=== PATIENT | female | born 1985 | race Caucasian/White ===

== ENCOUNTER 2019-10-15 21:39 | Outpatient (CLI) | payer OTHER ==
[2019-10-15 22:09] LABS: APPEARANCE,URINE CLOUDY; BILIRUBIN,URINE NEGATIVE (NEGATIVE); COLOR,URINE AMBER; GLUCOSE, URINE NEGATIVE (NEGATIVE); KETONES,URINE 20 mg/dL (NEGATIVE); LEUKOCYTE ESTERASE,URINE MODERATE (NEGATIVE); NITRITE,URINE NEGATIVE (NEGATIVE); PROTEIN,URINE 100 mg/dL (NEGATIVE); URINE SPECIFIC GRAVITY 1.028; UROBILINOGEN,URINE NEGATIVE mg/dL (<2.0)
[2019-10-15 22:31] LABS: URINE AMPHETAMINES SCREEN NEGATIVE; URINE BARBITURATES SCREEN NEGATIVE; URINE BENZODIAZEPINES SCREEN NEGATIVE; URINE COCAINE SCREEN NEGATIVE; URINE MARIJUANA (THC) SCREEN NEGATIVE; URINE METHADONE SCREEN NEGATIVE; URINE PHENCYCLIDINE SCREEN NEGATIVE
[2019-10-16] MEDS ORDERED: HYDROXYZINE PAMOATE 50 MG CAPSULE PO ONE (00:11)
[2019-10-16] MEDS ORDERED: HYDROXYZINE PAMOATE 50 MG CAPSULE ONE (00:14)
--- NOTE | 2019-10-16 00:40 | Non Stress Test Report ---
Non Stress Test Datetime Report Generated by CPN: 10/16/2019 00:40 DEMOGRAPHIC EGA NST: 39.3 INDICATION Indication for Study (NST) Other: labor check MONITORING Monitor Explained: Monitor Explained; Test Explained; Patient Verbalized Understanding Time on Monitor: 10/15/2019 22:03 Time off Monitor: 10/16/2019 00:01 NST Duration: 118 NST INTERVENTIONS NST Interventions: PO Hydration Physician Notified NST: Dr. Cisse BABY A: [id number] BABY A Movement : Present Contraction Frequency : irregular FHR Baseline : 145 Accelerations : 15X15 Decelerations : None Variability : Moderate 6-25bpm NST Review: Meets Criteria for Reactive NST NST Review and Verified By : VALERIANO Reyes NST Results: Reactive NST REPORT Report Trigger: Send Report
== END 2019-10-16 00:34 | disposition home or self-care (01) ==
LOC: LC 21:39
PROVIDERS: ATTEND Student in an Organized Health Care Education/Training Program
DX: Z34.93 Encounter for supervision of normal pregnancy, unspecified, third trimester (principal)
CPT/HCPCS: 59025; 80307; 81005; 84112

== ENCOUNTER 2019-10-17 15:16 | Outpatient (CLI) | payer OTHER ==
[2019-10-17] MEDS ORDERED: ACETAMINOPHEN 325 MG TABLET ONE (15:48)
[2019-10-17] MEDS ORDERED: ACETAMINOPHEN 325 MG TABLET PO PRN (15:50)
[2019-10-17 16:18] LABS: APPEARANCE,URINE SLIGHTLY-CLOUDY; BILIRUBIN,URINE NEGATIVE (NEGATIVE); COLOR,URINE YELLOW; GLUCOSE, URINE NEGATIVE (NEGATIVE); KETONES,URINE 20 mg/dL (NEGATIVE); LEUKOCYTE ESTERASE,URINE NEGATIVE (NEGATIVE); NITRITE,URINE NEGATIVE (NEGATIVE); PROTEIN,URINE 30 mg/dL (NEGATIVE); URINE SPECIFIC GRAVITY 1.019; UROBILINOGEN,URINE NEGATIVE mg/dL (<2.0)
--- NOTE | 2019-10-17 16:35 | Non Stress Test Report ---
Non Stress Test Datetime Report Generated by CPN: 10/17/2019 16:35 DEMOGRAPHIC EGA NST: 39.5 INDICATION Indication for Study (NST) Other: provider orders VITAL SIGNS Temperature - NST: 97.5 Pulse - NST: 76 RESP - NST: 18 NBPSYS NST: 121 NBPDIA NST: 56 MONITORING Monitor Explained: Monitor Explained; Test Explained; Patient Verbalized Understanding Time on Monitor: 10/17/2019 15:35 Time off Monitor: 10/17/2019 16:26 NST Duration: 51 NST INTERVENTIONS NST Interventions: PO Hydration; Reposition Patient Physician Notified NST: C. Amador, CNM BABY A: [id number] BABY A Movement : Present Contraction Frequency : irregular FHR Baseline : 135 Accelerations : 15X15 Decelerations : None Variability : Moderate 6-25bpm NST Review: Meets Criteria for Reactive NST NST Review and Verified By : Kye Crump RN NST Results: Reactive NST REPORT Report Trigger: Send Report
[2019-10-17 16:41] LABS: URINE AMPHETAMINES SCREEN NEGATIVE; URINE BARBITURATES SCREEN NEGATIVE; URINE BENZODIAZEPINES SCREEN NEGATIVE; URINE COCAINE SCREEN NEGATIVE; URINE MARIJUANA (THC) SCREEN NEGATIVE; URINE METHADONE SCREEN NEGATIVE; URINE PHENCYCLIDINE SCREEN NEGATIVE
== END 2019-10-17 16:48 | disposition home or self-care (01) ==
LOC: LC 15:16
PROVIDERS: ATTEND Obstetrics & Gynecology
DX: O47.1 False labor at or after 37 completed weeks of gestation (principal); Z3A.39 39 weeks gestation of pregnancy
CPT/HCPCS: 59025; 80307; 81005

== ENCOUNTER 2019-10-17 20:59 | Inpatient (IN) | payer OTHER ==
[2019-10-17] MEDS ORDERED: RINGERS SOLUTION,LACTATED 1,000 ML IV PRN (21:40)
[2019-10-17] MEDS ORDERED: RINGERS SOLUTION,LACTATED 1,000 ML IV ONE (21:40)
[2019-10-17] MEDS ORDERED: MISOPROSTOL 0.2 MG TABLET ONE (21:49)
[2019-10-17] MEDS ORDERED: OXYTOCIN 10 UNIT/ML VIAL ONE (21:49)
[2019-10-17 21:50] LABS: BILIRUBIN,URINE NEGATIVE (NEGATIVE); GLUCOSE, URINE 50 mg/dL (NEGATIVE); KETONES,URINE 80 mg/dL (NEGATIVE); LEUKOCYTE ESTERASE,URINE NEGATIVE (NEGATIVE); NITRITE,URINE NEGATIVE (NEGATIVE); PROTEIN,URINE 100 mg/dL (NEGATIVE); URINE SPECIFIC GRAVITY 1.031; UROBILINOGEN,URINE NEGATIVE mg/dL (<2.0)
[2019-10-17] MEDS ORDERED: BUPIVACAINE HCL 0.25 % INJ/PF (2.5 MG/1 ML) 30 ML VIAL ONE (21:50)
[2019-10-17] MEDS ORDERED: FENTANYL/BUPIVACAINE/NS/PF 300 MCG/150 ML RTUINJ EPI ONE (21:50)
[2019-10-17] MEDS ORDERED: LIDOCAINE 1% INJ-PF (10 MG/ML) 30 ML SDV ONE (21:50)
[2019-10-17] MEDS ORDERED: OXYTOCIN/0.9 % SODIUM CHLORIDE 30 UNIT/500 ML RTUINJ ONE (21:50)
[2019-10-17 21:52] LABS: APPEARANCE,URINE TURBID; COLOR,URINE RED
[2019-10-17 22:02] LABS: ABSOLUTE MONOCYTES (AUTO) 0.3 10^3/uL (0.1-1.4); BASOPHILS % (AUTO) 0.1 % (0-2); HEMATOCRIT 38.4 % (36.0-47.0); HEMOGLOBIN 13.2 g/dL (12.0-15.5); LYMPHOCYTES % (AUTO) 6.9 % (13-45); MEAN CORPUSCULAR HEMOGLOBIN 30.4 pg (27.0-33.4); MEAN CORPUSCULAR HGB CONC 34.4 g/dL (32.0-36.0); MEAN CORPUSCULAR VOLUME 88 fl (80-97); PLATELET COUNT 185 10^3/uL (150-450); RED BLOOD COUNT 4.35 10^6/uL (3.72-5.28); RED CELL DISTRIBUTION WIDTH 13.5 % (11.5-14.0); TOTAL CELLS COUNTED % (AUTO) 100 %; WHITE BLOOD COUNT 14.2 10^3/uL (4.0-10.5)
[2019-10-17 22:08] LABS: URINE AMPHETAMINES SCREEN NEGATIVE; URINE BARBITURATES SCREEN NEGATIVE; URINE BENZODIAZEPINES SCREEN NEGATIVE; URINE COCAINE SCREEN NEGATIVE; URINE MARIJUANA (THC) SCREEN NEGATIVE; URINE METHADONE SCREEN NEGATIVE; URINE PHENCYCLIDINE SCREEN NEGATIVE
--- NOTE | 2019-10-17 22:16 | Admission Physical ---
Datetime Report Generated by CPN: 10/17/2019 22:16 CURRENT ADMISSION Chief Complaint: Uterine Contractions Chief Complaint Other: 34 yo at 39.5 with painful contractions every 2-4 minutes. She has hx of one prior CS aftter Non-reassuring heart tracing in labor . She had progressed in that to 3 cm and had an epidural. She reports good FM and no LOF or VB. She has noted some mucus that is pink over last two days. Admit Impression : Term, Intrauterine ; Active Labor; Intact Membranes; Admit Plan: Admit to Unit; Initiate Protocol ALLERGIES Medication Allergies: No Medication Allergies: No Known Drug Allergies (10/17/2019) Latex: No Latex Allergies Food Allergies: none Environmental Allergies: none OBSTETRICAL HISTORY EDC: 10/19/2019 00:00 : 2 Para: 1 Term: 1 : 0 SAB: 0 IAB: 0 Livin Gestational Diabetes: No Rh Sensitization: No Incompetent Cervix: No DMOINIC: No Infertility: No ART Treatment: No Uterine Anomaly: No IUGR: No Hx Previous C/S: Yes Macrosomia: No Hx Loss/Stillborn: No PIH: No Hx : No Placenta Previa/Abruption: No Depression/PP Depression: Yes PTL/PROM: No Post Hemorrhage: No Current Procedures: Ultrasound; NST Obstetrical History Comments: , c/s for nonreassuring tracing, 40+ weeks g2-current , plans SEE RECORDS Alcohol: No Marijuana : No Cocaine: No Other Illicit Drugs: No Cigarettes: Never Smoker. [id number] MEDICAL HISTORY Diabetes: No Blood Transfusion: No Pulmonary Disease (Asthma, TB): No Breast Disease: No Hypertension: No Machine Assembler For Puller Over Surgery: No Heart Disease: No Hosp/Surgery: Yes Autoimmune Disorder: No Anesthetic Complications: No Kidney Disease: No Abnormal Pap Smear: No Neuro/Epilepsy: No Psychiatric Disorders: No Other Medical Diseases: No Hepatitis/Liver Disease: No Significant Family History: No Varicosities/Phlebitis: No Trauma/Violence : No Thyroid Dysfunction: No Medical History Comments: csection in 2015, hypoglycemia, depression off meds currently INFECTIOUS HISTORY Gonorrhea: No Genital Herpes: No Chlamydia: No Tuberculosis: No Syphilis: No Hepatitis: No HIV/AIDS Exposure: No Rash or Viral Illness: No HPV: No PHYSICAL EXAM General: Normal HEENT: Normal Neurologic: Normal Thyroid: Normal Heart: Normal Lungs: Normal Breast: Normal Back: Normal Abdomen: Normal Genitourinary Exam: Normal Extremities: Normal DTRs: Normal Pelvic Type: Adequate Vital Signs: Reviewed; Within Normal Limits VAGINAL EXAM Dilatation: 5 Effacement: 90 Station: -2 MEMBRANES Membranes: Intact FETUS A EGA: 39.5 Monitoring: External US FHR- Baseline: 150 Variability: Moderate 6-25bpm Accelerations: 15X15 Decelerations: None FHR Category: Category I Presentation: Vertex Admit Comment: 34 yo at 39.5 wks EGA om active labor. Hx of one prior CS after Non-reassuring heart tracing in labor . She had progressed in that to 3 cm and had an epidural. -Admit to LDR -NPO and two large bore IVs. LR bolus 1 liter and then LR at 125 cc/hr -CEFM and toco -Reviewed consent, risks, benefits and alternatives. COnsent signed. -GBS negative -Anticipate -Desires Epidural now PLANS FOR LABOR AND DELIVERY Labor and Delivery: None INFORMED CONSENT Informed Consent Obtained: Section Delivery; Vaginal After ; Risks, Benefits and Alternatives Discussed Signature: with User ID: [email or web address] : with User ID: [email or web address]
[2019-10-17] MEDS: EPHEDRINE SULFATE INJ 50 MG/1 ML AMPULE ONE (22:59)
[2019-10-18] MEDS ORDERED: PROMETHAZINE HCL 25 MG TABLET PO PRN (05:55)
[2019-10-18] MEDS ORDERED: DIBUCAINE 1% OINTMENT 28 GM TP PRN (05:55)
[2019-10-18] MEDS ORDERED: GLYCERIN/WITCH HAZEL LEAF 1 EACH MED..WIPE TP PRN (05:55)
[2019-10-18] MEDS ORDERED: PROMETHAZINE HCL INJ 25 MG/1 ML VIAL IV PRN (05:55)
[2019-10-18] MEDS ORDERED: ACETAMINOPHEN 650 MG SUPP.RECT PR PRN (05:55)
[2019-10-18] MEDS ORDERED: OXYTOCIN/0.9 % SODIUM CHLORIDE 30 UNIT/500 ML RTUINJ IV PRN (05:55)
[2019-10-18] MEDS ORDERED: ACETAMINOPHEN WITH CODEINE #3 TABLET PO PRN (05:55)
[2019-10-18] MEDS ORDERED: DIPHENHYDRAMINE HCL 25 MG CAPSULE PO PRN (05:55)
[2019-10-18] MEDS ORDERED: DIPH/PERTUSS(ACELL)/TETANUS VAC/PF 0.5 ML SYR (>=10YO) IM PRN (05:55)
[2019-10-18] MEDS ORDERED: NA PHOS,M-B/NA PHOS,DI-BA (ADULT) 133 ML ENEMA PR PRN (05:55)
[2019-10-18] MEDS ORDERED: PROMETHAZINE HCL 25 MG SUPP.RECT PR PRN (05:55)
[2019-10-18] MEDS ORDERED: MEASLES,MUMPS&RUBELLA VACC/PF 0.5 ML VIAL SUBCUT PRN (05:55)
[2019-10-18] MEDS ORDERED: BENZOCAINE/MENTHOL AEROSOL SPRAY 56 ML TOP PRN (05:55)
[2019-10-18] MEDS ORDERED: PSEUDOEPHEDRINE HCL 30 MG TABLET PO PRN (05:55)
[2019-10-18] MEDS ORDERED: MAGNESIUM HYDROXIDE SUSP 30 ML UDCUP PO PRN (05:55)
[2019-10-18] MEDS ORDERED: ZOLPIDEM TARTRATE 5 MG TABLET PO PRN (05:55)
[2019-10-18] MEDS: EPHEDRINE SULFATE INJ 50 MG/1 ML AMPULE ONE (06:31)
[2019-10-18] MEDS ORDERED: IBUPROFEN 800 MG TABLET ONE (06:38)
[2019-10-18] MEDS ORDERED: CEFAZOLIN 2 GM/D5W RTU 2 GM/50 ML RTUPB IV SCH (08:00)
[2019-10-18] MEDS: IBUPROFEN 800 MG TABLET PO SCH ×3 (08:15→21:25)
[2019-10-18] MEDS: CEFAZOLIN SODIUM 2 GM in DEXTROSE 5%-WATER 100 ML IV SCH ×3 (08:20→21:24)
[2019-10-18] MEDS: PRENATAL VITAMIN W DHA CAPSULE PO SCH (10:05)
[2019-10-18] MEDS: FAMOTIDINE 20 MG TABLET PO SCH ×2 (10:05→21:25)
[2019-10-18] MEDS: DOCUSATE SODIUM 100 MG CAPSULE PO SCH ×2 (10:05→17:52)
[2019-10-18] MEDS: FERROUS SULFATE 325 MG TABLET PO SCH ×2 (10:05→17:52)
[2019-10-18] MEDS: SENNOSIDES/DOCUSATE 8.6-50 MG 1 EACH TABLET PO SCH (10:05)
[2019-10-18] MEDS: ACETAMINOPHEN WITH CODEINE #3 TABLET PO PRN (20:02)
[2019-10-19] MEDS: CEFAZOLIN SODIUM 2 GM in DEXTROSE 5%-WATER 100 ML IV SCH ×4 (03:17→17:38)
[2019-10-19] MEDS: ACETAMINOPHEN WITH CODEINE #3 TABLET PO PRN (03:58)
[2019-10-19] MEDS: IBUPROFEN 800 MG TABLET PO SCH ×2 (05:46→13:44)
[2019-10-19 07:01] LABS: MEAN CORPUSCULAR HEMOGLOBIN 30.8 pg (27.0-33.4); MEAN CORPUSCULAR HGB CONC 34.5 g/dL (32.0-36.0); MEAN CORPUSCULAR VOLUME 89 fl (80-97); PLATELET COUNT 142 10^3/uL (150-450); RED BLOOD COUNT 3.25 10^6/uL (3.72-5.28); RED CELL DISTRIBUTION WIDTH 14.3 % (11.5-14.0); WHITE BLOOD COUNT 12.8 10^3/uL (4.0-10.5)
[2019-10-19 07:42] VITALS: BP 101/57
[2019-10-19] MEDS: FERROUS SULFATE 325 MG TABLET PO SCH ×2 (10:00→17:44)
[2019-10-19] MEDS: FAMOTIDINE 20 MG TABLET PO SCH (10:00)
[2019-10-19] MEDS: DOCUSATE SODIUM 100 MG CAPSULE PO SCH ×2 (10:00→17:44)
[2019-10-19] MEDS: SENNOSIDES/DOCUSATE 8.6-50 MG 1 EACH TABLET PO SCH (10:00)
[2019-10-19] MEDS: PRENATAL VITAMIN W DHA CAPSULE PO SCH (10:00)
--- NOTE | 2019-10-19 13:46 | PDOC PROGRESS REPORT ---
Subjective-OB Progress Note for:: 10/19/19 Subjective: Pt doing well. No concerns. She reports light bleeding, reg diet and voiding without difficulty. Baby is able to go home this evening, pt would like to be discharged as well. Physical Exam (OB) Vital Signs: Temp Pulse Resp BP Pulse Ox 97.8 F 70 18 101/57 L 98 10/19/19 07:18 10/19/19 07:18 10/19/19 07:18 10/19/19 07:18 10/19/19 07:18 Intake & Output 10/18/19 10/19/19 10/20/19 06:59 06:59 06:59 Intake Total 1120 Balance 1120 Weight 107.5 kg - PIH/Pre-Eclampsia Clonus: Negative Headache: Absent Epigastric Pain: No Visual Changes: No - Lochia Lochia Amount: Small 10-25 ml Lochia Color: Rubra/Red - Abdomen Description: Soft, Round Hernia Present: No Fundal Description: Firm, Midline Fundal Height: u/u - u/2 Objective-Diagnostic Laboratory: 10/19/19 06:28 10/19/19 06:28 WBC 12.8 H RBC 3.25 L Hgb 10.0 L D Hct 29.0 L MCV 89 MCH 30.8 MCHC 34.5 RDW 14.3 H Plt Count 142 L Assessment and Plan(PN) - Time Spent with Patient Time with patient: Less than 15 minutes Medications reviewed and adjusted accordingly: Yes - Disposition Anticipated Discharge: Home Within: within 24 hours
--- NOTE | 2019-10-19 13:50 | PDOC DISCHARGE SUMMARY ---
Impression - Admit/DC Date/PCP Admission Date/Primary Care Provider: 10/17/19 21:24 TRICE BRIDGES MD Discharge Date: 10/19/19 - Additional Information Resuscitation Status: Full Code Discharge Diet: Regular Discharge Activity: Balance Activity w/Rest, Pelvic Rest Referrals: TRICE BRIDGES MD [Primary Care Provider] - Prescriptions: Ibuprofen [Motrin 800 mg Tablet] 800 mg PO Q8HP PRN #60 tablet PRN Reason: For Pain Scale 4-5 Home Medications: No.137/Iron/Folic Acd [ Vitamin Tablet] 1 tab PO DAILY 12/12/14 Loratadine [Claritin 10 mg Tablet] 1 tab PO DAILY 10/15/19 Omeprazole Magnesium [Prilosec Otc] 20 mg PO DAILY 10/15/19 Ibuprofen [Motrin 800 mg Tablet] 800 mg PO Q8HP PRN #60 tablet 10/19/19 Results Laboratory Results: WBC 12.8 10^3/uL (4.0-10.5) H 10/19/19 06:28 RBC 3.25 10^6/uL (3.72-5.28) L 10/19/19 06:28 Hgb 10.0 g/dL (12.0-15.5) L D 10/19/19 06:28 Hct 29.0 % (36.0-47.0) L 10/19/19 06:28 MCV 89 fl (80-97) 10/19/19 06:28 MCH 30.8 pg (27.0-33.4) 10/19/19 06:28 MCHC 34.5 g/dL (32.0-36.0) 10/19/19 06:28 RDW 14.3 % (11.5-14.0) H 10/19/19 06:28 Plt Count 142 10^3/uL (150-450) L 10/19/19 06:28 Lymph % (Auto) 6.9 % (13-45) L 10/17/19 21:45 [place] % (Auto) 2.0 % (3-13) L 10/17/19 21:45 Eos % (Auto) 0.0 % (0-6) 10/17/19 21:45 Baso % (Auto) 0.1 % (0-2) 10/17/19 21:45 Absolute Neuts (auto) 13.0 10^3/uL (1.7-8.2) H 10/17/19 21:45 Absolute Lymphs (auto) 1.0 10^3/uL (0.5-4.7) 10/17/19 21:45 Absolute Monos (auto) 0.3 10^3/uL (0.1-1.4) 10/17/19 21:45 Absolute Eos (auto) 0.0 10^3/uL (0.0-0.6) 10/17/19 21:45 Absolute Basos (auto) 0.0 10^3/uL (0.0-0.2) 10/17/19 21:45 Seg Neutrophils % 91.0 % (42-78) H 10/17/19 21:45 Urine Color RED 10/17/19 21:15 Urine Appearance TURBID 10/17/19 21:15 Urine pH 7.0 (5.0-9.0) 10/17/19 21:15 Ur Specific [place] 1.031 10/17/19 21:15 Urine Protein 100 mg/dL (NEGATIVE) H 10/17/19 21:15 Urine Glucose (UA) 50 mg/dL (NEGATIVE) H 10/17/19 21:15 Urine Ketones 80 mg/dL (NEGATIVE) H 10/17/19 21:15 Urine Blood LARGE (NEGATIVE) H 10/17/19 21:15 Urine Nitrite NEGATIVE (NEGATIVE) 10/17/19 21:15 Urine Bilirubin NEGATIVE (NEGATIVE) 10/17/19 21:15 Urine Urobilinogen NEGATIVE mg/dL (<2.0) 10/17/19 21:15 Ur Leukocyte Esterase NEGATIVE (NEGATIVE) 10/17/19 21:15 Urine Ascorbic Acid NEGATIVE (NEGATIVE) 10/17/19 21:15 Urine Opiates Screen NEGATIVE 10/17/19 21:15 Urine Methadone Screen NEGATIVE 10/17/19 21:15 Ur Barbiturates Screen NEGATIVE 10/17/19 21:15 Ur Phencyclidine Scrn NEGATIVE 10/17/19 21:15 Ur Amphetamines Screen NEGATIVE 10/17/19 21:15 U Benzodiazepines Scrn NEGATIVE 10/17/19 21:15 Urine Cocaine Screen NEGATIVE 10/17/19 21:15 U Marijuana (THC) Screen NEGATIVE 10/17/19 21:15 RPR NONREACTIVE (NONREACTIVE) 10/17/19 21:45 Blood Type O POSITIVE 10/17/19 21:45 Antibody Screen NEGATIVE 10/17/19 21:45
--- NOTE | 2019-10-22 15:21 | Delivery Summary ---
Del Sum A-C Datetime Report Generated by CPN: 10/22/2019 15:21 DELIVERY PERSONNEL DELIVERY PERSONNEL: [id number] Delivery Doctor:: Daniela Mcclellan MD Labor and Delivery Nurse:: Shara Campbell RNbuhr mill operator Nurse:: VALERIANO Velasquez Nursery Nurse:: Nupur Gambino RN [employer] Roller/RESEARCH & ANALYTICS MANAGER: Patricia Olea, ST MATERNAL INFORMATION Delivery Anesthesia: Epidural Medications After Delivery: Pitocin 30 Units in 500ml NS/D5W Delivery QBL: 200 Maternal Complications: None Complication Details: TOLAC Provider Comments: Called to patients room complete and pushing at 2+ station. Delivered a viable female . After delivery of the head, the shoulders and rest of the body followed easily. Infant vigorous and cord clamping delayed for approximately 30 seconds. After doubly clamping and cutting cord, placed skin to skin. Both infant and mother stable. LABOR SUMMARY EDC: 10/19/2019 00:00 No. Babies in Womb: 1 (Annotations: Data stored by [facility] on behalf of user) Attempted: Yes Labor Anesthesia: None LABOR INFORMATION Reason for Induction: Not Applicable Onset of Labor: 10/17/2019 17:00 Complete Dilatation: 10/18/2019 03:48 Oxytocin: N/A Group B Beta Strep: negative Steroids Given: None Reason Steroids Not Administered: Not Applicable MEMBRANES Membranes Rupture Method: Spontaneous Rupture of Membranes: 10/18/2019 03:15 Length of Rupture (hr): 2.00 Amniotic Fluid Color: Clear Amniotic Fluid Amount: Moderate Amniotic Fluid Odor: Normal STAGES OF LABOR Stage 1 hr: 10 Stage 1 min: 48 Stage 2 hr: 1 Stage 2 min: 27 Stage 3 hr: 0 Stage 3 min: 6 Total Time in Labor hr: 12 Total Time in Labor min: 21 VAGINAL DELIVERY Episiotomy: None Laceration #1: Perineal Laceration Extension #1: Third Degree, IIIa (Less than 50 percent ext anal sphincter thickness torn) Laceration Repair: Yes Laceration Repair Note: Layered closure with 2-0 chromic Sponge Count Correct: Yes Sharps Count Correct: Yes CSECTION DELIVERY Primary Indication: N/A Secondary Indication: N/A CSection Incision: N/A BABY A INFORMATION Delivery Date/Time: 10/18/2019 05:15 Method of Delivery: Vaginal Method of Delivery: Vaginal Nurse Controlled Delivery: No Born in Route : No : Successful Forceps: N/A Vacuum Extraction: N/A Shoulder Dystocia : No PRESENTATION/POSITION BABY A Presentation: Cephalic Cephalic Presentation: Vertex Vertex Position: Right Occipital Anterior Breech Presentation: N/A PLACENTA INFORMATION BABY A Placenta Delivery Time : 10/18/2019 05:21 Placenta Method of Delivery: Spontaneous Placenta Method of Delivery: Spontaneous Placenta Status: Delivered SCORES BABY A Heart Rate 1 min: >100 bpm Resp Effort 1 min: Slow, Irregular Reflex Irritability 1 min: Cough or Sneeze or Pulls Away Muscle Tone 1 min: Some Flexion of Extremities Color 1 min: Blue/Pale Resuscitation Effort 1 min: Tactile Stimulation SCORE 1 MIN: 6 Heart Rate 5 min: >100 bpm Resp Effort 5 min: Good Cry Reflex Irritability 5 min: Cough or Sneeze or Pulls Away Muscle Tone 5 min: Active Motion Color 5 min: Body [place], Extremities Blue SCORE 5 MIN: 9 INFORMATION BABY A Gestational Age at Delivery: 39.6 Gestational Status: Full Term- 39- 40.6 Weeks Infant Outcome : Liveborn Condition : Stable Sex: Female Infant Sex: Female IDENTIFICATION BABY A Infant Verification Date/Time: 10/18/2019 05:37 ID Band Number: [id number] Mother's Name Verified: Yes Infant RN Verifying : K Jeison RN/D Bellavance RN WEIGHT/LENGTH BABY A Infant Birthweight (gm): 3776 Weight (lb): 8 Weight (oz): 5 Infant Length (in): 21.00 Infant Length (cm): 53.34 CORD INFORMATION BABY A No. Cord Vessels: 3 Nuchal Cord : N/A Cord Blood Taken: Yes-For Eval (Mom's Blood Type - or O+) Infant Suction: Mouth; Nose ASSESSMENT BABY A Complications: Multiple Late Decels; Multiple Variable Decels Physical Findings at Delivery: Caput Succedaneum Physical Findings- Other: marginal placenta insertion Infant Respirations: Appears Normal Skin to Skin: Yes Skin to Skin: Yes Skin to Skin Time (min): 15 Financial Counselor/ALS Called : No Transferred To: Remains with Mother BABY B INFORMATION : N/A SIGNATURES Signature: with User ID: Howard : with User ID: [email or web address]
== END 2019-10-19 19:15 | disposition home or self-care (01) | DRG 768 ==
LOC: LC 20:59 → LR 21:24 → 2S 10-18 09:44
PROVIDERS: ADMIT Obstetrics & Gynecology; ATTEND Obstetrics & Gynecology
PROC: 10E0XZZ Delivery of Products of Conception, External Approach (ICD-10-PCS; principal; 2019-10-18)
PROC: 0DQR0ZZ Repair Anal Sphincter, Open Approach (ICD-10-PCS; 2019-10-18)
DX: O34.211 Maternal care for low transverse scar from previous cesarean delivery (principal); O70.21 Third degree perineal laceration during delivery, IIIa; O76 Abnormality in fetal heart rate and rhythm complicating labor and delivery; Z3A.39 39 weeks gestation of pregnancy; Z37.0 Single live birth
CPT/HCPCS: 1967; 36415; 80307; 81005; 85025; 85027; 86592; 86850; 86900; 86901; 88307; 94760; J0690; J2590; J3010; J3490; J7060